=== PATIENT | male | born 1935 | race Caucasian/White ===

== ENCOUNTER 2016-11-11 17:28 | Inpatient (IN) | payer OTHER ==
--- NOTE | 2016-11-11 17:52 | EDPHY ---
H & P Stated Complaint: high blood sugar, AMS HPI/ROS: CHIEF COMPLAINT: HISTORY OF PRESENT ILLNESS: REVIEW OF SYSTEMS: Ten systems reviewed and are negative unless otherwise noted in the HPI EXAMINATION General Appearance: Alert, no distress Head: normocephalic, atraumatic Eyes: Pupils equal and round, no conjunctival pallor or injection ENT, Mouth: Mucous membranes moist Neck: Normal inspection, supple, non-tender Respiratory: Lungs are clear to auscultation Cardiovascular: Regular rate and rhythm Gastrointestinal: Abdomen is soft and nontender Back: non-tender, no bony abnormalities Neurological: A&O, nonfocal, normal gait Skin: Warm and dry, no rash Extremities: Nontender, no pedal edema Psychiatric: Mood and affect normal DIFFERENTIAL DIAGNOSES: Including but not limited to MDM: 5:50 p.m. increasing blood sugars with a high A1c approximately 14 at his primary care office today. He is durable power of civil rights attorney at bedside, his neighbor who is also a nurse here, reports that he has had some intermittent confusion as well with this. He may actually have a diagnosis of dementia she is not entirely sure. He is on Aricept. He has No systemic complaints, but on initial examination he was hypoxic at 88%. blood sugars were reportedly 440 and similar to that of the past 2 days. I-STAT, laboratory studies, chest x-ray and urine have been ordered. he is awake, alert, conversing appropriately in no acute distress at this time. 6:25 p.m. Case discussed with Dr. Jacobsen. he recommends IV fluid and 10 units of regular insulin IV. He has been ordered and we will monitor. Plan for discharge home should all laboratory studies returned normal, and his blood sugar improved after IV fluids and regular insulin. 7:50 p.m. I have re-evaluated the patient. He is resting comfortably in no acute distress. We are obtaining a recheck of his blood sugar at this time. I have discussed the case with his primary care nurse practitioner did parminder. She informed me that there is no way the patient can be discharged home safely as his dementia is advancing to rapidly. That she feels that he is a danger to himself at home given that his is not living with him at this time. The subtle contact the hospitalist for admission to evaluate placement. 8:05 p.m. I discussed the case with the hospitalist Dr. Paz. He will admit the patient and evaluate him in the ER. patient has been admitted to Dr. Paz. His blood sugar has improved with IV regular insulin IV push. He remains stable at this time. Given the hyperglycemia and dementia, with the fear of him being a danger to himself at home and directly, we will admit him for evaluation of possible placement per the recommendation of his primary care nurse practitioner. I discussed the case with Dr. Paz and he has agreed to admit him. SUPERVISION:Patient was evaluated in conjunction with the supervising physician. Please see their note for details. Source: Patient, Other Exam Limitations: No limitations - Personal History Current Tetanus Diphtheria and Acellular Pertussis (TDAP): Yes - Medical/Surgical History Hx Asthma: No Hx Chronic Respiratory Disease: No Hx Diabetes: Yes Hx Cardiac Disease: No Hx Renal Disease: No Hx Cirrhosis: No Hx Alcoholism: No Hx HIV/AIDS: No Hx Splenectomy or Spleen Trauma: No Other PMH: DM, Dementia - Social History Smoking Status: Former smoker Constitutional: Initial Vital Signs Temperature (C) 98.6 F 11/11/16 17:37 Heart Rate 70 11/11/16 17:37 Respiratory Rate 18 11/11/16 17:37 Blood Pressure 156/77 H 11/11/16 17:37 O2 Sat (%) 89 L 11/11/16 17:37 O2 Delivery Mode Nasal Cannula O2 (L/minute) 2 Allergies/Adverse Reactions: No Known Allergies Allergy (Verified 11/11/16 17:43) Home Medications: Medication Instructions Recorded Aspirin EC [Aspirin EC 325 mg (*)] 325 mg PO DAILY 11/11/16 Atorvastatin Calcium [Lipitor 40 40 mg PO DAILY 11/11/16 mg (*)] Donepezil HCl [Aricept 5 MG (*)] 5 mg PO HS 11/11/16 Lisinopril [PRINIVIL] 20 mg PO DAILY 11/11/16 Sitagliptin Phos/Metformin HCl 1 each PO BID 11/11/16 [Janumet 50-1,000 mg Tablet] glipiZIDE [Glipizide] 5 mg PO DAILY 11/11/16 Medical Decision Making - Data Points Laboratory Results: Laboratory Results 11/11/16 18:50 11/11/16 18:10 01/24/17 01/24/17 01/24/17 18:50 18:30 18:10 WBC 6.93 10^3/uL (3.80-9.50) RBC 5.74 10^6/uL (4.40-6.38) Hgb 16.2 g/dL (13.7-17.5) POC Hgb Hct 48.2 % (40.0-51.0) POC Hct MCV 84.0 fL (81.5-99.8) MCH 28.2 pg (27.9-34.1) MCHC 33.6 g/dL (32.4-36.7) RDW 13.3 % (11.5-15.2) Plt Count 176 10^3/uL (150-400) MPV 11.7 fL (8.7-11.7) Neut % (Auto) 72.2 % (39.3-74.2) Lymph % (Auto) 16.7 % (15.0-45.0) [place] % (Auto) 7.4 % (4.5-13.0) Eos % (Auto) 2.3 % (0.6-7.6) Baso % (Auto) 1.0 % (0.3-1.7) Nucleat RBC Rel Count 0.0 % (0.0-0.2) Absolute Neuts (auto) 5.00 10^3/uL (1.70-6.50) Absolute Lymphs (auto) 1.16 10^3/uL (1.00-3.00) Absolute Monos (auto) 0.51 10^3/uL (0.30-0.80) Absolute Eos (auto) 0.16 10^3/uL (0.03-0.40) Absolute Basos (auto) 0.07 10^3/uL (0.02-0.10) Absolute Nucleated RBC 0.00 10^3/uL (0-0.01) Immature Gran % 0.4 % (0.0-1.1) Immature Gran # 0.03 10^3/uL (0.00-0.10) POC Sodium Sodium Not Reported POC Potassium Potassium REJ POC Chloride Chloride Not Reported Carbon Dioxide Not Reported Anion Gap Not Reported POC BUN BUN Not Reported Creatinine Not Reported POC Creatinine Estimated GFR Not Reported Glucose Not Reported POC Glucose Calcium Not Reported Total Bilirubin Not Reported Conjugated Bilirubin Not Reported Unconjugated Bilirubin Not Reported AST Not Reported ALT Not Reported Alkaline Phosphatase Not Reported NT-Pro-B Natriuret Pep REJ Total Protein Not Reported Albumin Not Reported Lipase Not Reported Urine Color PALE YELLOW Urine Appearance CLEAR Urine pH 6.0 (5.0-7.5) Ur Specific [place] 1.018 (1.002-1.030) Urine Protein 1+ H (NEGATIVE) Urine Ketones NEGATIVE (NEGATIVE) Urine Blood NEGATIVE (NEGATIVE) Urine Nitrate NEGATIVE (NEGATIVE) Urine Bilirubin NEGATIVE (NEGATIVE) Urine Urobilinogen NEGATIVE EU (0.2-1.0) Ur Leukocyte Esterase NEGATIVE (NEGATIVE) Urine RBC 1-3 /hpf (0-3) Urine WBC NONE SEEN /hpf (0-3) Ur Epithelial Cells NONE SEEN /lpf (NONE-1+) Ur Culture Indicated? NOT INDICATED (NI) Urine Glucose 3+ H (NEGATIVE) 11/11/16 18:07 WBC RBC Hgb POC Hgb 17.3 gm/dL (14.5-17.3) Hct POC Hct 51 H % (42.8-50.6) MCV MCH MCHC RDW Plt Count MPV Neut % (Auto) Lymph % (Auto) [place] % (Auto) Eos % (Auto) Baso % (Auto) Nucleat RBC Rel Count Absolute Neuts (auto) Absolute Lymphs (auto) Absolute Monos (auto) Absolute Eos (auto) Absolute Basos (auto) Absolute Nucleated RBC Immature Gran % Immature Gran # POC Sodium 136 mEq/L (134-144) Sodium POC Potassium 4.8 mEq/L (3.3-5.0) Potassium POC Chloride 99 mEq/L (96-108) Chloride Carbon Dioxide Anion Gap POC BUN 18 mg/dL (7-23) BUN Creatinine POC Creatinine 0.8 mg/dL (0.8-1.5) Estimated GFR Glucose POC Glucose 371 H mg/dL (70-100) Calcium Total Bilirubin Conjugated Bilirubin Unconjugated Bilirubin AST ALT Alkaline Phosphatase NT-Pro-B Natriuret Pep Total Protein Albumin Lipase Urine Color Urine Appearance Urine pH Ur Specific [place] Urine Protein Urine Ketones Urine Blood Urine Nitrate Urine Bilirubin Urine Urobilinogen Ur Leukocyte Esterase Urine RBC Urine WBC Ur Epithelial Cells Ur Culture Indicated? Urine Glucose Medications Given: Discontinued Medications Sodium Chloride (Ns) 1,000 mls @ 0 mls/hr IV ONCE ONE PRN Reason: Wide Open Stop: 11/11/16 18:25 Last Admin: 11/11/16 18:54 Dose: 1,000 mls Insulin Human Regular (Humulin R) 10 unit IVP EDNOW ONE Stop: 11/11/16 18:25 Last Admin: 11/11/16 19:01 Dose: 10 unit Point of Care Test Results: 11/11/16 18:07 POC Sodium 136 POC Potassium 4.8 POC Chloride 99 POC BUN 18 POC Creatinine 0.8 POC Glucose 371 H Departure - Departure Disposition: [facility] In[facility] Acute Clinical Impression: Dementia, Type 2 diabetes mellitus with hyperglycemia Condition: Good Referrals: Pattie Alvarez, SCALER [Primary Care Provider] - As per Instructions
[2016-11-11] MEDS ORDERED: NS 1,000 ML IV ONE (18:24)
[2016-11-11] MEDS ORDERED: INSULIN REGULAR HUMAN 100 UNIT/ML IVP ONE (18:24)
[2016-11-11 18:37] LABS: COLOR PALE YELLOW; LEUKOCYTE ESTERASE,URINE NEGATIVE (NEGATIVE); NITRITE,URINE NEGATIVE (NEGATIVE)
[2016-11-11 18:44] LABS: WBC,URINE NONE SEEN /hpf (0-3)
[2016-11-11 19:03] LABS: % IMMATURE GRANULYOCYTES 0.4 % (0.0-1.1); ABSOLUTE IMMATURE GRANULOCYTES 0.03 10^3/uL (0.00-0.10); ADD DIFF? NO; ADD MORPH? NO; ADD SCAN? NO; ATYPICAL LYMPHOCYTE FLAG 10 (0-99); FRAGMENT RBC FLAG 0 (0-99); HEMATOCRIT 48.2 % (40.0-51.0); HEMOGLOBIN 16.2 g/dL (13.7-17.5); LEFT SHIFT FLG 0 (0-99); LIPEMIA HEMOLYSIS FLAG 80 (0-99); MEAN CELL HEMOGLOBIN 28.2 pg (27.9-34.1); MEAN CELL HEMOGLOBIN CONCENTR. 33.6 g/dL (32.4-36.7); MEAN PLATELET VOLUME 11.7 fL (8.7-11.7); PLATELET CLUMPS FLAG 0 (0-99); PLATELET COUNT 176 10^3/uL (150-400); RED BLOOD CELL COUNT 5.74 10^6/uL (4.40-6.38); RED CELL DISTRIBUTION WIDTH 13.3 % (11.5-15.2)
--- NOTE | 2016-11-11 19:52 | DX ---
PA and Lateral Chest 19:07 p.m. Indication: Cough. Evaluate for pneumonia. Comparison: 2 view chest dated May 12, 2013 Findings: Hyperinflation, diffuse peribronchial thickening and left basilar linear opacities are all unchanged since April 2013. No edema, confluent airspace consolidation or effusion. Kyphosis and multi level degenerative disk disease are unchanged. Impression: No pneumonia. Chronic airways disease similar to April 2013.
[2016-11-11 20:34] LABS: ALANINE AMINOTRANSFERASE 32 IU/L (21-72); ALBUMIN 3.3 g/dL (3.5-5.0); ALKALINE PHOSPHATASE 106 IU/L (38-126); ANION GAP 8 mEq/L (8-16); ASPARTATE AMINOTRANSFERASE 20 IU/L (17-59); BILIRUBIN,TOTAL 0.7 mg/dL (0.1-1.4); BILIRUBIN-CONJUGATED 0.2 mg/dL (0.0-0.5); BILIRUBIN-UNCONJUGATED 0.5 mg/dL (0.0-1.1); CALCIUM 9.2 mg/dL (8.5-10.4); CARBON DIOXIDE 27 mEq/l (22-31); CHLORIDE 101 mEq/L (97-110); CREATININE 0.7 mg/dL (0.7-1.3); GLOMERULAR FILTRATION RATE > 60; GLUCOSE 210 mg/dL (70-100); POTASSIUM 4.1 mEq/L (3.5-5.2); SODIUM 136 mEq/L (134-144); TOTAL PROTEIN 6.1 g/dL (6.3-8.2)
[2016-11-11] MEDS ORDERED: ONDANSETRON DISINTEGRATING 4 MG TAB PO PRN (20:49)
[2016-11-11] MEDS ORDERED: ACETAMINOPHEN 325 MG TAB PO PRN (20:49)
[2016-11-11] MEDS ORDERED: ONDANSETRON 4 MG/2 ML VIAL IVP PRN (20:49)
[2016-11-11] MEDS ORDERED: D50W 25 GM/50 ML SYR IVP PRN (20:52)
[2016-11-11] MEDS ORDERED: DONEPEZIL HCL 5 MG TAB PO SCH (21:00)
--- NOTE | 2016-11-11 21:24 | GHP ---
[f rep st] HISTORY AND PHYSICAL DATE OF ADMISSION: 11/11/2016 HISTORY OF PRESENT ILLNESS: The patient is a pleasant 81-year-old gentleman with a history of asuncion ia and diabetes who presents with family members and friends for hyperglycemia, as well as increasing inability to take care of himself. It sounds like he has been the primary caregiver for his , who has Parkinson's, which is a result of neglect for himself. He saw his primary care physician yesterday. His hemoglobin A1c was 14. H e had a blood sugar of 400. He had a followup visit again today. His blood sugar was 400, and there was a desire to potentially admit him for glycemic control then. However, I wanted to find some res pite care for his , which has been achieved by friends not him. The patient expresses confusion as to taking the medications, and it sounds like he has access to the m, he is just unable to take them. He is unable to follow a diabetic diet. There have been falls. He denies recent fevers, chills, cough, sputum, nausea, vomiting, diarrhea. REVIEW OF SYSTEMS: Complete 10-point review of systems conducted, negative except as noted in the HP I. PAST MEDICAL HISTORY: 1. Diabetes. 2. Hypertension. 3. Dementia. 4. Hyperlipidemia. SOCIAL HISTORY: Lives with his . He has been her primary caregiver, but with a resulting self-n eglect. No tobacco. No alcohol. 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 PHYSICAL EXAM: VITAL SIGNS: Temperature 37, blood pressure 156/77, pulse 70, breathing 18 per minut e, 89% on room air. GENERAL: No acute distress. Confused. Sclerae anicteric. Oropharynx clear. Mucous membranes moist. NECK: Supple without lymphadenopathy or JVD. LUNGS: Clear to auscultation bilaterally. HEART: S1, S2, without murmurs. ABDOMEN: Soft, nontender, nondistended. LOWER EXTR EMITIES: No edema. Calves nontender. SKIN: Without rash. NEUROLOGIC: Exam is nonfocal. Mental status exam: The patient is oriented to being in the hospital, but he needs to be reminded of why he was here. LABS: White count 6.9, hematocrit 48, platelets are 176,000. Sodium 136, potassium 4.1, chloride 10 7, bicarbonate 27, BUN 13, creatinine 0.7, glucose 210, was 370 on presentation. LFTs normal. UA is unremarkable. Chest x-ray, interpreted by me, shows no acute cardiopulmonary disease. I discussed the case with in the emergency department. ASSESSMENT AND PLAN: This is a 81-year-old gentleman with dementia who presents with inability to ta ke care of himself. 1. Diabetes, uncontrolled, as evidenced by hemoglobin A1c, and presenting sugar of 400. We will con tinue his medications, as he has not been taking them, and also add lispro sliding scale. I will re- evaluate in the morning. 2. Failure to thrive. This certainly presents as adult failure to thrive in the sense the patient c annot take his medications. I have requested PT/OT and Speech/Language to see him for cognitive eval uation. I feel the patient is unable to take care of himself. 3. Hypoxia. This is a new finding. His chest x-ray is unremarkable. The patient likely has a degr ee of OHS, given his elevated bicarbonate. We will follow. Supplemental oxygen may be indicated. I do not think this represents VTE. 4. Prophylaxis. Pharmacologic prophylaxis indicated. Start enoxaparin 40 daily. 5. Disposition. Inpatient status. /[id number]/MODL
[2016-11-11 21:57] VITALS: RESP 18
[2016-11-11] MEDS: NS 1,000 ML IV SCH (22:07)
[2016-11-11] MEDS: metFORMIN HCL 500 MG TAB PO SCH (22:13)
[2016-11-12 05:24] LABS: % IMMATURE GRANULYOCYTES 0.3 % (0.0-1.1); ABSOLUTE IMMATURE GRANULOCYTES 0.02 10^3/uL (0.00-0.10); ADD DIFF? NO; ADD MORPH? NO; ADD SCAN? NO; ATYPICAL LYMPHOCYTE FLAG 0 (0-99); FRAGMENT RBC FLAG 10 (0-99); HEMOGLOBIN 15.1 g/dL (13.7-17.5); LEFT SHIFT FLG 0 (0-99); LIPEMIA HEMOLYSIS FLAG 80 (0-99); MEAN CELL HEMOGLOBIN 28.5 pg (27.9-34.1); MEAN CELL HEMOGLOBIN CONCENTR. 33.6 g/dL (32.4-36.7); MEAN CELL VOLUME 85.1 fL (81.5-99.8); MEAN PLATELET VOLUME 11.5 fL (8.7-11.7); PLATELET CLUMPS FLAG 10 (0-99); PLATELET COUNT 162 10^3/uL (150-400); RED BLOOD CELL COUNT 5.29 10^6/uL (4.40-6.38); RED CELL DISTRIBUTION WIDTH 13.3 % (11.5-15.2)
[2016-11-12 05:33] LABS: ANION GAP 6 mEq/L (8-16); CALCIUM 8.7 mg/dL (8.5-10.4); CARBON DIOXIDE 23 mEq/l (22-31); CHLORIDE 106 mEq/L (97-110); CREATININE 0.7 mg/dL (0.7-1.3); GLOMERULAR FILTRATION RATE > 60; GLUCOSE 254 mg/dL (70-100); POTASSIUM 4.6 mEq/L (3.5-5.2); SODIUM 135 mEq/L (134-144)
[2016-11-12] MEDS: NS 1,000 ML IV SCH (06:14)
[2016-11-12] MEDS: metFORMIN HCL 500 MG TAB PO SCH (08:18)
[2016-11-12] MEDS: INSULIN LISPRO 100 UNIT/ML SC SCH ×2 (08:20→13:09)
[2016-11-12] MEDS ORDERED: glipiZIDE 5 MG TAB PO SCH (09:00)
[2016-11-12] MEDS ORDERED: ATORVASTATIN CALCIUM 40 MG TAB PO SCH (09:00)
[2016-11-12] MEDS ORDERED: LISINOPRIL 20 MG TAB PO SCH (09:00)
[2016-11-12] MEDS ORDERED: ENOXAPARIN 40 MG/0.4 ML SYR SC SCH (09:00)
[2016-11-12] MEDS ORDERED: ASPIRIN EC 325 MG TAB PO SCH (09:00)
[2016-11-12 09:15] VITALS: BP 143/71; PULSE 62; TEMP 97.8; O2SAT 95
--- NOTE | 2016-11-12 14:59 | PDIAF ---
- Diagnosis Diagnosis: FTT Code Status: Full Code - Medication Management Discharge Medications: Medications to Continue on Transfer Aspirin EC [Aspirin EC 325 mg (*)] 325 mg PO DAILY 11/11/16 [Last Taken Unknown] Atorvastatin Calcium [Lipitor 40 mg (*)] 40 mg PO DAILY 11/11/16 [Last Taken Unknown] Donepezil HCl [Aricept 5 MG (*)] 5 mg PO HS 11/11/16 [Last Taken 11/10/16] Lisinopril [PRINIVIL] 20 mg PO DAILY 11/11/16 [Last Taken Unknown] Sitagliptin Phos/Metformin HCl [Janumet 50-1,000 mg Tablet] 1 each PO BID [Last Taken Unknown] glipiZIDE [Glipizide] 5 mg PO DAILY 11/11/16 [Last Taken Unknown] Acetaminophen [Tylenol 325mg (*)] 650 mg PO Q4HRS PRN #0 tab 11/12/16 [Last Taken Unknown] Discharge Medications: Refer to the Discharge Home Medication list for PRN reason. PICC Care - Routine: N/A - Orders Services needed: Home Care, Registered Nurse, [employer] Heavy [employer] Home Care Face to Face: I certify that this patient was under my care and that I had the required [id number] encounter meeting the encounter requirements on the discharge day. My findings support the fact that the patient is homebound as defined in CMS Chapter 7 Medicare Benefits Manual 30.1.1, The condition of the patient is such that there exists a normal inability to leave home and consequently, leaving home would require a considerable and taxing effort. - Follow Up Care Current Providers and Referrals: Pattie Alvarez [employer] [Primary Care Provider] - As per Instructions
--- NOTE | 2016-11-12 15:38 | GDS ---
[f rep st] DISCHARGE SUMMARY DISCHARGE DIAGNOSES: 1. Uncontrolled diabetes. 2. Failure to thrive. STUDIES AND PROCEDURES DONE: Chest x-ray. PHYSICAL EXAM: GENERAL: The patient is alert, no acute distress. VITAL SIGNS: Afebrile at 36.6, p ulse 62, respiratory rate is 18, blood pressure is 143/71. He is saturating 95% on room air. I have seen and evaluated the patient on the day of discharge. HOSPITAL COURSE: The patient is a 81-year-old male, who was brought to the hospital with inability t o take care of himself. He was evaluated and diagnosed with: 1. Failure to thrive. The patient will have continued outpatient care and has poor short-term memor y. He does have difficulty managing and taking care of himself; however, he is not unsafe and he is not incompetent to make the decision to go home to his normal living environment. I have discussed a t length with his [facility] and she is agreeable to take him home. 2. Uncontrolled diabetes. During this hospitalization, we reinitiated his home medications. I susp ect that the patient forgot to take his home medications as regularly scheduled. His blood sugar is improved during this hospital course, and he will continue on his home medications in the outpatient setting. I recommend to the [facility] that she get an alarm locked medication box that will assist the p atient and help remind him to take his medications at the correct times. 3. Hypoxia. This has resolved with no further intervention warranted at this time. DISPOSITION: The patient will be discharged home with his [facility]. [facility] care provider, Pattie Alvarez. The patient, as well as his [facility] have rec eived significant education and support during this hospitalization. DISCHARGE MEDICATIONS: Please refer to EMR form. I have not provided the patient any prescriptions for medications at the time of disposition. I have not discontinued any of his previously prescribed home medications to the best of my knowledge. I spent greater than 35 minutes in the care, coordination, and management of this patient's dispositi on, in conjunction with the [facility], as well as the case monitor. /[id number]/MODL
== END 2016-11-12 15:58 | disposition home health service (06) | DRG 639 ==
LOC: F3E 21:48
PROVIDERS: ADMIT Internal Medicine; ATTEND Internal Medicine
DX: E11.65 Type 2 diabetes mellitus with hyperglycemia (principal); T38.3X6A Underdosing of insulin and oral hypoglycemic [antidiabetic] drugs, initial encounter; F03.90 Unspecified dementia, unspecified severity, without behavioral disturbance, psychotic disturbance, mood disturbance, and anxiety; R62.7 Adult failure to thrive; I10 Essential (primary) hypertension; E78.5 Hyperlipidemia, unspecified; R09.02 Hypoxemia; Z87.891 Personal history of nicotine dependence
CPT/HCPCS: 82947-QW; 92523-GN; 96374; 97162-GP; 97166-GO; G0463-PO; G8978-GP-CI; G8979-GP-CI; G8987-GO-CJ; G8988-GO-CI; G9168-GN-CK; G9169-GN-CJ; J1650; J1815